=== PATIENT | male | born 1945 ===

== ENCOUNTER 2019-08-22 07:53 | Day surgery (SDC) | payer BC ==
[2019-08-22] MEDS ORDERED: LIDOCAINE 2% MDV (20MG/ML) 20ML VIAL IV ONE (07:54)
[2019-08-22] MEDS ORDERED: PROPOFOL 10 MG/ML VIAL IV ONE (07:54)
--- NOTE | 2019-08-23 08:30 | Operative Note ---
OPERATION: COLONOSCOPY with random biopsy and photo. PREOPERATIVE DIAGNOSIS: Hematochezia. POSTOPERATIVE DIAGNOSES: 1. Patchy colitis, left-sided greater than right. 2. Sigmoid diverticulosis. PROCEDURE: After informed consent was obtained from the patient, he was placed in the left lateral decubitus position in the endoscopy suite, sedated and monitored by the department of anesthesia. Digital rectal examination was unremarkable. A well-lubricated [id number] colonoscope was inserted into the rectum and advanced to the cecum. Preparation quality was good. The cecum and cecal bulb were inspected. There was inflammation around the appendiceal orifice. The terminal ileum appeared normal. Random biopsies were obtained at the level of the appendiceal orifice. The ascending colon had scar changes, as did the transverse colon. These had the appearance of burned-out colitis type of appearance. Random ascending colon biopsies were obtained. The descending colon had some scarring and pale changes consistent with burned-out colitis. Random biopsies were obtained from the descending colon. There were patchy colitic changes in the sigmoid colon and rectum. Biopsies obtained from both the sigmoid colon and rectum. There were also scattered diverticula in the sigmoid colon. J- turn views were not performed given the inflammation seen. RECOMMENDATIONS: The patient should start an oral mesalamine product. I will start him on Aprezo 4 tablets each morning. He will be seen in followup in 4 weeks. As always, thank you for allowing me to participate in the healthcare of your patients. MINH
== END 2019-08-22 09:35 | disposition home or self-care (01) ==
LOC: HOP 07:53 → MERGE 07:53 → HOP 09:35
PROVIDERS: ATTEND Internal Medicine Gastroenterology
DX: K92.1 Melena (principal); K52.89 Other specified noninfective gastroenteritis and colitis; K57.30 Diverticulosis of large intestine without perforation or abscess without bleeding; I10 Essential (primary) hypertension; N40.0 Benign prostatic hyperplasia without lower urinary tract symptoms